=== PATIENT | male | born 1990 | race Caucasian/White ===

== ENCOUNTER 2016-07-25 15:33 | Emergency (ER) | payer MEDICAID, OTHER ==
[~2016-07-25] VITALS: Wt 120.4 kg
[~2016-07-25 15:33] MED LIST: CARB400T PO; CRB100TCR PO; FLUT16SP24 NASAL; LACO50TA5 PO; LEVE-5 PO; LEVE500T34; OXYB5TAB7; OXYB5TAB7 PO; [UNRECOGNIZED DRUG - CODE]
[2016-07-25] MEDS ORDERED: SOD CHLORIDE 0.9% 500 ML IV STA (16:50)
--- NOTE | 2016-07-25 17:30 | RADRPT ---
PROCEDURE: XR Chest. CLINICAL INDICATION: chest pain TECHNIQUE: Single frontal view of the chest was obtained COMPARISON: 04/03/12 FINDINGS: The heart and mediastinum are within normal limits. The lungs are clear. There is no pleural effusion or pneumothorax. RPTAT: AA IMPRESSION: No acute disease. .Ezio Ivey MD, MD Date Time Electronically viewed and signed by .Ezio Ivey MD, on 07/25/2016 17:29 .S/
[2016-07-25 17:34] LABS: ADD SCAN DIFF NO
[2016-07-25 17:35] LABS: ABNORMAL IP MESSAGE 1; ADD UMIC YES; BASOPHILS % 0.2 % (0.0-2.0); EOSINOPHILS # 0.2 10^3/ul (0.0-0.5); HEMATOCRIT 56.8 % (42.0-52.0); LYMPHOCYTES # 2.6 10^3/ul (0.8-2.9); MEAN CORPUSCULAR HEMOGLOBIN 28.2 pg (29.0-33.0); MEAN CORPUSCULAR HGB CONC 31.7 g/dl (32.0-37.0); MEAN CORPUSCULAR VOLUME 88.9 fl (82.0-101.0); MEAN PLATELET VOLUME 10.1 fl (7.4-10.4); MONOCYTE # 1.6 10^3/ul (0.3-0.9); MONOCYTES % 8.5 % (0.0-11.0); NEUTROPHIL # 13.8 10^3/ul (1.6-7.5); NEUTROPHILS % 75.7 % (39.0-77.0); PLATELET COUNT 248 10^3/UL (140-415); RED BLOOD COUNT 6.39 10^6/ul (4.70-6.10); RED CELL DISTRIBUTION WIDTH 14.4 % (11.5-14.5); URINE BILIRUBIN (Dip) NEGATIVE (NEGATIVE); URINE BLOOD (Dip) 3+ (NEGATIVE); URINE COLOR YELLOW (YELLOW); URINE GLUCOSE (Dip) NEGATIVE (NEGATIVE); URINE KETONES (Dip) NEGATIVE (NEGATIVE); URINE LEUKOCYTE ESTERASE (Dip) 3+ (NEGATIVE); URINE NITRITE (Dip) POSITIVE (NEGATIVE); URINE TOTAL PROTEIN (Dip) 2+ (NEGATIVE); URINE UROBILINOGEN (Dip) 0.2 E.U./dL (0.1-1.0); WHITE BLOOD COUNT 18.3 10^3/ul (4.8-10.8)
--- NOTE | 2016-07-25 17:43 | ERD ---
ER Documentation Chief Complaint Date/Time DATE: 07/25/16 TIME: 17:41 Chief Complaint THROAT PAIN, BLOOD IN URINE, PT WITH SPINA BIFIDA HPI 26-year-old male history of spina bifida who presents with multiple complaints provided by his mother. A de icer kit assembler was used. The mother is mostly concerned because of hematuria. The patient usually has a catheter urine and the mother has noted blood in the urine for approximately 24 hours. She also notes that the patient had been complaining of sore throat has a cough with slightly increased rate of breathing. She denies any fevers or chills no nausea vomiting no abdominal pain. ROS All systems reviewed and are negative except as per history of present illness. Medications Home Meds Active Scripts Cephalexin* (Keflex*) 500 Mg Capsule, 500 MG PO QID for 7 Days, CAP Prov:SHIREEN DE JESUS MD 07/25/16 Reported Medications Fluticasone Propionate* (Flonase* Nasal) 16 Gm [place].susp, 1 SPR NASAL DAILY 04/03/12 Carbamazepine* (Tegretol Xr*) 100 Mg Tab.sr.12h, 2000 MG PO PM 04/03/12 Lacosamide (Vimpat) 50 Mg Tablet, 150 MG PO DAILY 04/03/12 Oxybutynin Chloride* (Ditropan*) 5 Mg Tab, 5 MG PO TID 04/03/12 Oxybutynin Chloride* (Ditropan*) 5 Mg Tablet 10/11/10 Carbamazepine (Tegretol) 100 Mg Tab.chew 10/11/10 Levetiracetam* (Keppra XR*) 500 Mg Tab.sr.24h, 1500 10/11/10 Carbamazepine* (Tegretol Xr*) 100 Mg Tab.sr.12h, 1000 MG PO DAILY, 0 Refills 07/09/09 Levetiracetam* (Keppra*) 500 Mg Tablet, 1500 MG PO BID, 0 Refills 07/09/09 Carbamazepine* (Tegretol Xr*) 400 Mg Tab.sr.12h, 400 MG PO BID, 0 Refills 07/09/09 Allergies Allergies: Coded Allergies: latex (Verified Allergy, Mild, RASH, 04/08/12) PER DAD, PT. 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 Eyes: Pupils equally reactive, EOM intact ENT: Moist mucous membranes Neck: Supple, no lymphadenopathy Respiratory: Scant rhonchi but clears with coughing, slight tachypnea Cardiovascular: Slight tachycardia, no murmurs, rubs, or gallops Abdominal: Soft, non-tender, non-distended, no peritoneal signs : Deferred MSK: No edema, no unilateral swelling, Neurologic: Alert and oriented, normal speech, no focal weakness, no cerebellar signs Skin: No rash Psych: Normal mood Result Diagram: 07/25/16 1730 07/25/16 1730 Results 24 hrs Laboratory Tests Test 07/25/16 17:30 White Blood Count 18.310^3/ul Red Blood Count 6.3910^6/ul Hemoglobin 18.0g/dl Hematocrit 56.8% Mean Corpuscular Volume 88.9fl Mean Corpuscular Hemoglobin 28.2pg Mean Corpuscular Hemoglobin Concent 31.7g/dl Red Cell Distribution Width 14.4% Platelet Count 50834^3/UL Mean Platelet Volume 10.1fl Neutrophils % 75.7% Lymphocytes % 14.0% Monocytes % 8.5% Eosinophils % 1.0% Basophils % 0.2% Nucleated Red Blood Cells % 0.0/100WBC Neutrophils # 13.810^3/ul Lymphocytes # 2.610^3/ul Monocytes # 1.610^3/ul Eosinophils # 0.210^3/ul Basophils # 0.010^3/ul Nucleated Red Blood Cells # 0.010^3/ul Urine Color YELLOW Urine Clarity SLIGHTLY CLOUDY Urine pH 6.0 Urine Specific [place] 1.010 Urine Ketones NEGATIVE Urine Nitrite POSITIVE Urine Bilirubin NEGATIVE Urine Urobilinogen 0.2 E.U./dL Urine Leukocyte Esterase 3+ Urine Microscopic RBC 10-25/HPF Urine WBC Clumps MODERATE Urine Microscopic WBC >200/HPF Urine Squamous Epithelial Cells MODERATE Urine Bacteria MANY Urine Hemoglobin 3+ Urine Glucose NEGATIVE% Urine Total Protein 2+ Sodium Level 141mmol/L Potassium Level 4.1mmol/L Chloride Level 103mmol/L Carbon Dioxide Level 30mmol/L Anion Gap 12 Blood Urea Nitrogen 15mg/dl Creatinine 0.93mg/dl Glucose Level 83mg/dl Calcium Level 9.1mg/dl Current Medications Medications (Trade) Dose Ordered Sig/Zach Route PRN Reason Start Time Stop Time Status Last Admin Dose Admin Sodium Chloride 500 ml @ 500 mls/hr Q1H STAT IV 07/25/16 16:50 07/25/16 17:49 DC 07/25/16 17:35 Ceftriaxone Sodium (Rocephin) 50 ml @ 100 mls/hr ONCE ONCE IVPB 07/25/16 18:30 07/25/16 18:59 07/25/16 18:37 Procedures/MDM EKG, MONITORS, & DIAGNOSTIC IMAGING: Chest x-ray: I reviewed and interpreted a 1 view of the chest Mediastinum: No enlargement Cardiac silhouette: No cardiomegaly Airspace: Clear lung arthru bilaterally without evidence of pneumothorax Bones: No evidence of fracture LAB INTERPRETATION: Leukocytosis, UTI MEDICAL DECISION MAKING: The patient presents with multiple complaints including sore throat, cough, hematuria. Patient most likely has a viral URI however given tachypnea consider possible pneumonia. The patient also likely has a urinary tract infection with hemorrhagic cystitis. No evidence of kidney stone no evidence of acute intra-abdominal process. The patient will benefit from chest x-ray, basic blood work, urine sample. ER COURSE: Patient given IV fluids. Ceftriaxone given for UTI. The patient's vital signs improved. His tachypnea improved. The patient is safe for discharge at this time. I kept the patient and/or family informed of laboratory and diagnostic imaging results throughout the emergency room course. DISPOSITION PLAN: We discussed follow up with the patient's primary care doctor within 24 to 48 hours as needed. We also discussed return to the emergency room for worsening symptoms or worsening condition. Outpatient referral: [None required] Discharge Medications: Keflex Departure Diagnosis: Primary Impression: UTI (urinary tract infection) Urinary tract infection type: acute cystitis Hematuria presence: with hematuria Qualified Code: N30.01 - Acute cystitis with hematuria Additional Impression: Cough Condition: Stable SHIREEN DE JESUS MD Jul 25, 2016 17:43
[2016-07-25 17:51] LABS: BACTERIA,URINE MANY
[2016-07-25 17:52] LABS: SQUAMOUS EPITHELIAL CELL,UR MODERATE
[2016-07-25 18:01] LABS: CALCIUM 9.1 mg/dl (8.4-10.2); CREATININE 0.93 mg/dl (0.61-1.24); POTASSIUM 4.1 mmol/L (3.5-5.1)
[2016-07-25 18:25] VITALS: BP 148/80; PULSE 96; RESP 16; TEMP 97.5
[2016-07-25] MEDS ORDERED: CEFTRIAXONE 1 GM/50 ML (PMX) 50 ML IVPB ONE (18:30)
[2016-07-25] MEDS ORDERED: CEPH-443 PO (18:42)
== END 2016-07-25 18:45 | disposition home or self-care (01) ==
LOC: E/R 15:33
DX: N30.01 Acute cystitis with hematuria (principal); R05 Cough; R40.2142 Coma scale, eyes open, spontaneous, at arrival to emergency department; R40.2252 Coma scale, best verbal response, oriented, at arrival to emergency department; R40.2362 Coma scale, best motor response, obeys commands, at arrival to emergency department; Z91.040 Latex allergy status
CPT/HCPCS: 36415; 71010; 80048; 81001; 85025; 87086; 96374; J0696; J7040; P9612; Z7502

== ENCOUNTER 2017-07-26 12:57 | Emergency (ER) | END 2017-07-26 20:43 | disposition home or self-care (01) ==